=== PATIENT | female | born 1990 | race Two or more races ===

== ENCOUNTER 2017-12-01 06:22 | Day surgery (SDC) | payer OTHER ==
[~2017-12-01] VITALS: Ht 165.1 cm; Wt 105.2 kg
[2017-12-01] VITALS (11 sets, daily range): BP systolic 113–142; BP diastolic 59–83
[~2017-12-01 06:22] MED LIST: NKM
[2017-12-01] MEDS ORDERED: EPINEPHrine 1mg/1ml Amp ONE (06:27)
[2017-12-01] MEDS ORDERED: Bupivacaine 0.5% Inj 30 ml vial INJ ONE (06:27)
[2017-12-01] MEDS ORDERED: Midazolam 2mg/2ml Inj ONE (06:45)
[2017-12-01] MEDS ORDERED: fentaNYL 100 mcg/2 mL IV ONE (06:45)
--- NOTE | 2017-12-01 06:55 | Pre-Procedure Note/Attestation ---
Pre-Procedure Note/Attestation Complete Prior to Procedure Planned Procedure: right Procedure Narrative: right knee medial meniscus repair vs resection, ACL allograft reconstruction. Indications for Procedure Pre-Operative Diagnosis: right knee medial meniscus tear, ACL tear Attestation I attest that I discussed the nature of the procedure; its benefits; risks and complications; and alternatives (and the risks and benefits of such alternatives ), prior to the procedure, with the patient (or the patient's legal players club representative). I attest that, if there was a reasonable possibility of needing a blood transfusion, the patient (or the patient's legal players club representative) was given the [facility] standardized written summary, pursuant to the [place] Blood Safety Act ([place] Health and Safety Code # 1645, as amended). I attest that I re-evaluated the patient just prior to the surgery and that there has been no change in the patient's H&P, except as documented below: CÉSAR BELL December 01, 2017 06:55
[2017-12-01] MEDS ORDERED: Sterile Water Irrig 1000ml IRRIG ONE (07:00)
[2017-12-01] MEDS ORDERED: LR 1000ml ONE (07:00)
[2017-12-01] MEDS ORDERED: NS Irrig 1000ml ONE (07:00)
[2017-12-01] MEDS ORDERED: NS Irrig 4000ml IRRIG ONE ×2 (07:00→07:05)
[2017-12-01] MEDS ORDERED: Propofol 200mg/20ml IV ONE (07:00)
[2017-12-01] MEDS ORDERED: Bacitracin 50000 Units Vial ONE (07:06)
--- NOTE | 2017-12-01 07:50 | Anethesia Preoperative Eval ---
Anesthesia Pre-op PMH/ROS General Date of Evaluation: December 01, 2017 Time of Evaluation: 06:55 Anesthesiologist: More ASA Score: ASA 1 Mallampati Score Class I : Soft palate, uvula, fauces, pillars visible Class II: Soft palate, uvula, fauces visible Class III: Soft palate, base of uvula visible Class IV: Only hard plate visible Mallampati Classification: Class II Surgeon: Annette Diagnosis: ACL tear right knee Surgical Procedure: Right nee scope, ACL reconstrucion Family History: no anesthesia problems Allergies: Coded Allergies: No Known Allergies (Unverified , 12/01/17) Medications: see eMAR Past Medical History Cardiovascular: Denies: HTN, CAD, MD, valve dz, arrhythmia, other Pulmonary: Denies: asthma, COPD, SOM, other Gastrointestinal/Genitourinary: Denies: GERD, CRI, ESRD, other Neurologic/Psychiatric: Denies: dementia, CVA, depression/anxiety, TIA, other Endocrine: Denies: DM, hypothyroidism, steroids, other HEENT: Denies: cataract (L), cataract (R), glaucoma, T[place] (L), T[place]K (R), other Hematology/Immune: Denies: anemia, DVT, bleeding disorder, other Musculoskeletal/Integumentary: Denies: OA, RA, DJD, DDD, edema, other Other: obesity PMH Narrative: Obesity PSxH Narrative: C/S Anesthesia Pre-op Phys. Exam Physician Exam Last Vital Signs Date Time Temp Pulse Resp B/P (MAP) Pulse Ox O2 Delivery O2 Flow Rate FiO2 12/01/17 06:49 97.7 59 18 116/66 98 Room Air 97.7 Constitutional: NAD Neurologic: CN 2-12 intact Cardiovascular: RRR, no M/R/G Respiratory: CTA Gastrointestinal: S/NT/ND Airway Exam Mallampati Score: Class II MO: full ROM: full Teeth: intact Anesthesia Pre-op A/P Labs WNL Urine Test Test 12/01/17 06:35 Urine HCG, Qualitative Negative (NEGATIVE) Risk Assessment & Plan Assessment: Healthy obese female for ACL reconstruction Plan: GA, femoral nerve block for post op pain (surgeon request) Status Change Before Surgery: No Pre-Antibiotics Drug: Ancef Given Within 1 Hr of Incision: Yes Time Given: 07:20 Bala Aguero MD December 01, 2017 07:50
--- NOTE | 2017-12-01 07:54 | Immediate Post-Op Evaluation ---
Immediate Post-Op Evalulation Immediate Post-Op Evalulation Procedure: Right knee scope, ACL reconstruction Date of Evaluation: December 01, 2017 Time of Evaluation: 10:05 IV Fluids: 700 Estimated Blood Loss: 30 Blood Pressure Systolic: 142 Blood Pressure Diastolic: 67 Pulse Rate: 79 Respiratory Rate: 16 O2 Sat by Pulse Oximetry: 99 Temperature (Fahrenheit): 98.1 Pain Score (1-10): 0 Nausea: No Vomiting: No Complications No complication Patient Status: reacts, patent, none Hydration Status: adequate Drug: Ancef Given Within 1 Hr of Incision: Yes Time Given: 07:20 Bala Aguero MD December 01, 2017 07:54
[2017-12-01] MEDS ORDERED: LR 1000ml 1,000 ML IVLG SCH (07:57)
[2017-12-01] MEDS ORDERED: DiphenhydrAMINE 50mg/ml Inj IVP PRN (08:00)
[2017-12-01] MEDS ORDERED: Meperidine 50mg/ml Inj(FOR RIGORS ONLY) IVP SCH (08:00)
[2017-12-01] MEDS ORDERED: Morphine Sulfate 4mg/ml Inj IVP PRN (08:00)
[2017-12-01] MEDS ORDERED: LR 1000ml 1,000 ML IV SCH (08:00)
--- NOTE | 2017-12-02 02:30 | Operative Note - Dictated ---
DATE OF OPERATION: 12/01/2017 PREOPERATIVE DIAGNOSIS: Right knee medial meniscus tear and anterior cruciate ligament allograft reconstruction. POSTOPERATIVE DIAGNOSIS: Right knee medial meniscus tear and anterior cruciate ligament allograft reconstruction. OPERATION PERFORMED: Right knee arthroscopy with meniscectomy Level 4 and anterior cruciate ligament reconstruction with cadaver ligament. INDICATION FOR OPERATION: This is an approximately 27-year-old female who is status post right knee trauma. She has no prior problems of the knee. She has failed conservative treatment. Preoperative workup indicates ACL tear and medial meniscus tear. SURGEON: Wayne Bryant M.D. NURSES' REGISTRY DIRECTOR: Feliberto Severino M.D. ESTIMATED BLOOD LOSS: 20 mL. TOURNIQUET TIME: Zero. ANESTHESIA: General LMA. DESCRIPTION OF PROCEDURE IN DETAIL: The patient was brought into the operating room, identified as the patient. The right knee was prepped and draped in the usual sterile fashion. No tourniquet was required, but a sterile tourniquet was in the room. She received 2 g of Ancef. She was supine on the operating room table. The well leg was protected with padding. Arthroscopic portals were established. The knee was examined. There was a pivot shift and an obvious drawer. Arthroscopic portals were established anterolaterally and anteromedially. The arthroscope was introduced into the anterolateral portal. The suprapatellar pouch was normal. The patellofemoral joint was normal. The lateral gutter was normal. The medial gutter was normal. Upon entering the medial compartment, there was an obvious medial meniscus tear. This was a bucket handle, but the posterior fragment was extremely narrow and the medial fragment bridge was extremely frayed. The meniscus was probed. The tear was in multiple planes. The judgement was that this represents the mostly white could not be reliably counted on to heal if a repair was carried out. Therefore, a partial medial meniscectomy was performed. Next, attention was directed at the notch. The ACL stump was identified. There was no ACL. This was a traumatic rupture. The posterior cruciate ligament was intact. The notch was fairly tight and it was elected to do a notchplasty, particularly on the lateral aspect of the medial femoral condyle where there was a bony ridge. Sufficient synovium was removed to allow adequate visualization for tunnel placement. The tibial plateau was prepped using the cautery and shaver. The possible point was identified for the graft placement. While the knee was prepared for the graft, the assistant to the dean was preparing the graft on the back table. A cadaver central parapatellar tendon, [id number] graft was prepared with 10-mm bone plugs. A tension board was used to hold the cadaver graft in tension for about 30 minutes. The femoral tunnel was debrided. The guidewire was placed into the position superiorly and just laterally in the notch. This was placed far enough back. The drop off point was identified. This was followed by a 10 mm reamer, which was drilled in 45 mm to accommodate the graft plug. The sutures were placed through the pin and secured in place. Attention was next directed to the tibia. A 3 cm incision was made in the tibia. A guide was used to select the optimal point for the graft placement. The guidewire was placed and its position confirmed. The reamer was then placed through the anterior cortex and in through the tibia. Reaming was carried of the posterior aspect of the drill hole in the tibia at the tibial surface to prevent binding of the tendon. The graft was placed through the tibial tunnel and up into the femoral tunnel without difficulty. A titanium interference screw was placed into the femoral tunnel. This provided an excellent fixation of the femoral graft. The knee was held at 20 degrees of flexion. Tension was placed on the graft with a posterior drawer and an interference screw was placed into the tibial tunnel. This provided excellent fixation of the graft. The graft plug was somewhat prominent and a rongeur was used to turn this back. Arthroscopic visualization of this tendon revealed excellent tension and positioning of the tendon ligament. The knee was held into full extension. There was no impingement due to the notchplasty that had been performed. The incision over the anterior tibia was closed using 2-0 Vicryl and 4-0 Vicryl. The arthroscopic portals were closed using 4-0 Vicryl. Marcaine was instilled. The patient also received a femoral nerve block. The bridge was applied to the knee and a sterile dressing was applied. It was locked at 30 degrees of flexion. The patient was awakened in the operating room in satisfactory condition. Wayne Bryant M.D. DR: SVETLANA JOB#: [id number] CC: Wayne Bryant MD; [address] [place] [address]; Fax#: [phone] [facility]
== END 2017-12-01 12:45 | disposition home or self-care (01) ==
LOC: SUR 06:22
DX: S83.241A Other tear of medial meniscus, current injury, right knee, initial encounter (principal); S83.511A Sprain of anterior cruciate ligament of right knee, initial encounter; X58.XXXA Exposure to other specified factors, initial encounter; Y92.9 Unspecified place or not applicable
CPT/HCPCS: 29881; 29888; 81025; 87070; 87075; 87205; 97161; C1713; J0171; J0690; J1170; J2175; J2250; J2405; J2704; J3010; J3490; J7120; 94003; 94150